=== PATIENT | male | born 1965 ===

== ENCOUNTER → 2017-08-09 | Outpatient (CLI) | payer BC ==
[2017-08-09 10:16] LABS: Basophils # (A) 0.1 k/uL (0-0.2); Basophils % (A) 1 %; Eosinophils # (A) 0.7 k/uL (0-0.7); Eosinophils % (A) 9 %; HCT 42.9 % (39.0-53.0); HGB 14.1 gm/dL (13.0-17.5); Lymphocytes # (A) 2.6 k/uL (1.0-4.8); Lymphocytes % (A) 34 %; MCH 29.5 pg (25.0-35.0); MCHC 32.9 g/dL (31.0-37.0); MCV 89.7 fL (80.0-100.0); Monocytes # (A) 0.3 k/uL (0-1.0); Monocytes % (A) 4 %; Neutrophils # (A) 3.9 k/uL (1.3-7.7); Neutrophils % (A) 50 %; Platelet Count 307 k/uL (150-450); RBC 4.78 m/uL (4.30-5.90); RDW 12.6 % (11.5-15.5); WBC 7.8 k/uL (3.8-10.6)
--- NOTE | 2017-08-09 12:16 | XR ---
EXAMINATION TYPE: XR chest 2V DATE OF EXAM: 08/09/2017 COMPARISON: Prior chest 03/18/2015 HISTORY: Cough TECHNIQUE: Frontal and lateral views of the chest are obtained. FINDINGS: Patient is rotated. No evident airspace disease, pneumothorax, or pleural effusion. Cardia c mediastinal silhouette, pulmonary vascularity and josh are stable. Prominent lung volumes suggests underlying COPD. IMPRESSION: No acute cardiopulmonary process.
[2017-08-09 12:26] LABS: Erythrocyte Sedimentation Rate 8 mm/hr (0-15)
[2017-08-09 12:45] LABS: ALT 29 U/L (21-72); AST 24 U/L (17-59); Alkaline Phosphatase 49 U/L (38-126); Anion Gap 12 mmol/L; Blood Urea Nitrogen 15 mg/dL (9-20); C Reactive Protein 7.3 mg/L (<10.0); Calcium 9.6 mg/dL (8.4-10.2); Carbon Dioxide 28 mmol/L (22-30); Chloride 104 mmol/L (98-107); Cholesterol 174 mg/dL (<200); Creatine Kinase 109 U/L (55-170); Glucose 119 mg/dL (74-99); HDL Cholesterol 36 mg/dL (40-60); LDL Cholesterol,Calculated 97 mg/dL (0-99); Potassium 4.5 mmol/L (3.5-5.1); Sodium 144 mmol/L (137-145); Total Bilirubin 0.7 mg/dL (0.2-1.3); Triglycerides 207 mg/dL (<150)
[2017-08-09 12:56] LABS: T4, Free (Free Thyroxine) 1.19 ng/dL (0.78-2.19)
[2017-08-09 13:10] LABS: Prostate Specific Antigen 0.62 ng/mL (0.00-4.00)
[2017-08-09 17:01] LABS: Vitamin D 25 Hydroxy 17.4 ng/mL (30.0-100.0)
[2017-08-09 17:30] LABS: Hemoglobin A1C 5.5 % (4.0-6.0)
[2017-08-09 18:09] LABS: Hepatitis A Antibody IgM Non-Reactive (Non-Reactive); Hepatitis B Core IgM Non-Reactive (Non-Reactive)
== END | disposition home or self-care (01) ==
LOC: LABWHC1 09:12
PROVIDERS: ATTEND Internal Medicine
DX: R05 Cough (principal); Z00.00 Encounter for general adult medical examination without abnormal findings; N40.0 Benign prostatic hyperplasia without lower urinary tract symptoms; J44.9 Chronic obstructive pulmonary disease, unspecified; E78.5 Hyperlipidemia, unspecified; I10 Essential (primary) hypertension; E55.9 Vitamin D deficiency, unspecified; M25.50 Pain in unspecified joint
CPT/HCPCS: 36415; 71046; 80053; 80061; 80074; 82306; 82550; 83036; 84153; 84403; 84439; 84443; 85025; 85652; 86140